=== PATIENT | male | born 1965 | race Caucasian/White ===

== ENCOUNTER 2018-12-07 10:56 | Emergency (ER) | payer OTHER ==
[~2018-12-07] VITALS: Ht 190.5 cm; Wt 103.4 kg
[2018-12-07] MEDS ORDERED: LEVAQUIN750 MG PO (14:23)
[2018-12-07] MEDS ORDERED: IBUPROFEN800 MG PO (14:23)
[2018-12-07] MEDS ORDERED: MUPIROCIN22 GM TOP (14:23)
== END 2018-12-07 15:02 | disposition home or self-care (01) ==
LOC: ER 10:56
DX: S40.871A Other superficial bite of right upper arm, initial encounter (principal); W57.XXXA Bitten or stung by nonvenomous insect and other nonvenomous arthropods, initial encounter; Y93.89 Activity, other specified; Y92.89 Other specified places as the place of occurrence of the external cause; Y99.8 Other external cause status